=== PATIENT | male | born 1985 | race Caucasian/White ===

== ENCOUNTER 2022-10-08 18:47 | Emergency (ER) | payer OTHER ==
[~2022-10-08] VITALS: Ht 185.4 cm; Wt 88.9 kg
[~2022-10-08 18:47] MED LIST: CLINDAMYCIN HC150 MG PO; NAPROSYN500 MG PO
[2022-10-08] MEDS ORDERED: HYDROCODON-ACE1 EA10 PO (22:08)
[2022-10-08] MEDS ORDERED: AMOX TR-K CLV1 EAC1 PO (22:08)
== END 2022-10-08 22:24 | disposition home or self-care (01) ==
LOC: ED 18:47
DX: L03.213 Periorbital cellulitis (principal); F17.200 Nicotine dependence, unspecified, uncomplicated
CPT/HCPCS: 36415; 70460; 80053; 85025; 99284-25; A9270

== ENCOUNTER 2024-04-28 16:19 | Emergency (ER) | payer OTHER ==
[~2024-04-28] VITALS: Ht 185.4 cm; Wt 88.5 kg
[~2024-04-28 16:19] MED LIST changes: +AMOX TR-K CLV1 EAC1 PO; +HYDROCODON-ACE1 EA10 PO
[2024-04-28] MEDS ORDERED: DIPHTH,PERTUSS(ACELL),TET VAC 0.5 ML SYRINGE IM ONE (16:45)
[2024-04-28] MEDS ORDERED: ACETAMINOPHEN 500 MG TAB PO ONE (16:45)
[2024-04-28 17:33] VITALS: BP 102/73
== END 2024-04-28 17:33 | disposition home or self-care (01) ==
LOC: ED 16:19
DX: S61.512A Laceration without foreign body of left wrist, initial encounter (principal); X58.XXXA Exposure to other specified factors, initial encounter; F17.200 Nicotine dependence, unspecified, uncomplicated; Z23 Encounter for immunization
CPT/HCPCS: 12001; 90471; 90715; 99282-25; A9270